=== PATIENT | male | born 1950 | race Caucasian/White ===

== ENCOUNTER 2017-12-25 09:20 | Day surgery (SDC) | payer OTHER | END 2017-12-25 13:30 | disposition home or self-care (01) | LOC: AMB-ENDOS 09:20 | DX: C20 Malignant neoplasm of rectum (principal) ==

== ENCOUNTER 2018-01-11 14:00 | Inpatient (IN) | payer OTHER ==
[~2018-01-11] VITALS: Ht 172.7 cm; Wt 72.6 kg
[2018-01-12] MEDS ORDERED: COZAAR50 MG PO (09:12)
[2018-01-19] MEDS ORDERED: OMEPRAZOLE20 M1 PO (13:36)
[2018-01-19] MEDS ORDERED: INTESTINEX680 M1 PO (13:36)
[2018-01-19] MEDS ORDERED: PERCOCET 5-3251 EACH PO (13:36)
== END 2018-01-19 16:57 | disposition home or self-care (01) | DRG 331 ==
LOC: SURH 01-16 08:02 → O/R 01-16 08:02 → SURH 01-16 13:45
PROVIDERS: Surgery
PROC: 0D1B4Z4 Bypass Ileum to Cutaneous, Percutaneous Endoscopic Approach (ICD-10-PCS; 2018-01-16)
PROC: 07TC4ZZ Resection of Pelvis Lymphatic, Percutaneous Endoscopic Approach (ICD-10-PCS; 2018-01-16)
PROC: 0DTN4ZZ Resection of Sigmoid Colon, Percutaneous Endoscopic Approach (ICD-10-PCS; 2018-01-16)
PROC: 4A1BXSH Monitoring of Gastrointestinal Vascular Perfusion using Indocyanine Green Dye, External Approach (ICD-10-PCS; 2018-01-16)
PROC: 0DTP4ZZ Resection of Rectum, Percutaneous Endoscopic Approach (ICD-10-PCS; principal; 2018-01-16 13:45)
DX: C20 Malignant neoplasm of rectum (principal); R59.0 Localized enlarged lymph nodes; Z93.2 Ileostomy status

== ENCOUNTER 2018-05-17 14:15 | Inpatient (IN) | payer OTHER ==
[~2018-05-17] VITALS: Ht 172.7 cm; Wt 74.8 kg
[~2018-05-17 14:15] MED LIST: BENADRYL25 MG PO; COZAAR50 MG PO; INTESTINEX680 M1 PO; OMEPRAZOLE20 M1 PO; PERCOCET 5-3251 EACH PO
[2018-06-10] MEDS ORDERED: GAS-X125 M1 PO (10:59)
[2018-06-10] MEDS ORDERED: INTESTINEX680 M1 PO (10:59)
[2018-06-10] MEDS ORDERED: LEVSIN/SL0.125 MG SL (10:59)
[2018-06-10] MEDS ORDERED: PROTONIX40 MG PO (10:59)
== END 2018-06-10 13:31 | disposition home or self-care (01) | DRG 330 ==
LOC: SURG 05-25 08:14 → O/R 05-25 08:14 → SURH 05-25 13:30 → SURG 05-25 16:32
PROVIDERS: ADMIT Surgery
PROC: 0DQB4ZZ Repair Ileum, Percutaneous Endoscopic Approach (ICD-10-PCS; principal; 2018-05-25 13:30)
PROC: BW21ZZZ Computerized Tomography (CT Scan) of Abdomen and Pelvis (ICD-10-PCS; 2018-06-05)
DX: Z43.2 Encounter for attention to ileostomy (principal); C20 Malignant neoplasm of rectum; K91.31 Postprocedural partial intestinal obstruction; I10 Essential (primary) hypertension; F43.29 Adjustment disorder with other symptoms

== ENCOUNTER 2018-05-22 09:21 | Outpatient (CLI) | payer OTHER | END 2018-05-22 09:28 | disposition home or self-care (01) | LOC: RX STUDY 09:21 | DX: K62.5 Hemorrhage of anus and rectum (principal); R59.0 Localized enlarged lymph nodes; C20 Malignant neoplasm of rectum ==